=== PATIENT | male | born 1965 | race Caucasian/White ===

== ENCOUNTER 2018-02-10 05:35 | Day surgery (SDC) | payer BC ==
[~2018-02-10] VITALS: Ht 182.9 cm; Wt 122.5 kg
--- NOTE | ~2018-02-10 | EKG ---
[address] [address] ELECTROCARDIOGRAM REPORT Name: TAVARES,NAKITA Laurel Room #: 150-[address] [place] [address]#: [id number] Admission: 02/10/18 Attend Phys: Nakita Bowie MD Discharge: Date of : 65 Report #: [id number] THIS REPORT FOR: //name// [facility] Test Date: 2018-02-10 Test Time: 07:04:50 Pat Name: NAKITA TAVARES Department: Room: 150 1 Gender: M Data Warehouse Specialist: CHELE : 1965 Requested By: Nakita Bowie Order Number: [id number] MD: Glenn Dawkins Measurements Intervals [place] Rate: 76 P: 72 NE: 160 QRS: 39 QRSD: 103 T: 24 QT: 380 QTc: 428 Interpretive Statements Sinus rhythm Abnormal R-wave progression, early transition No previous ECG available for comparison Electronically Signed On 02-10-2018 7:59:41 CDT by Glenn Dawkins [email or web address] <ELECTRONICALLY SIGNED> By: Glenn Dawkins MD, [facility] 02/10/18 0759 0704 3 Glenn Dawkins MD, FACC /EPI
--- NOTE | ~2018-02-10 | O ---
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 PROCEDURE: Left knee arthroscopy with partial medial meniscectomy and debridement of medial compartment chondromalacia. SURGEON: Nakita Bowie MD INDICATIONS: This 53-year-old obese gentleman has problems with chronic left knee pain. He underwent previous arthroscopic debridement about 8 years ago, which involve principally debridement of medial compartment and medial meniscus damage. Now, he is having more severe and progressive pain, principally along the medial joint line. This makes ambulation and prolonged standing difficult. MRI study suggests some further tearing of the medial meniscus as well as some generalized chondromalacia. Given these findings and progressive ongoing symptoms, we have elected to go ahead with arthroscopic evaluation and debridement. DESCRIPTION OF PROCEDURE: The patient was taken to the operating room where he was placed under general anesthesia. Prophylactic intravenous antibiotics were administered. The left knee and thigh were meticulously prepped and draped and a thigh tourniquet inflated to 300 mmHg. A lateral suprapatellar inflow cannula was placed and the knee was inflated with normal saline. The arthroscope and shaver were introduced through parapatellar tendon approaches. The various compartments were sequentially visualized and documented with arthroscopic photography. The medial compartment reveals rather severe posttraumatic chondromalacia in the medial compartment with areas of complete loss of cartilage on the medial tibial plateau. The area of exposed subchondral bone measures about 12 mm-14 mm in diameter and a somewhat irregular serpentine fashion in the mid weightbearing portion. There is less significant cartilage damage anterior and more lateral to this, in that compartment. There is much less severe cartilage damage on the medial femoral condyle, where there seems to be grade 2 to mild grade 3 irregular cartilage damage with fibrillation and some delamination. These areas [address] [address] OPERATIVE REPORT Name: NAKITA TAVARES Room #: 150-1 [facility].#: [id number] Admission: 02/10/18 Attend Phys: Nakita Bowie MD Discharge: Date of : 65 Report #: [id number] of irregular loose and cartilage were gently debrided, smoothing the margin to a more smooth even aspect. I did not feel the area of severe cartilage damage would be amenable to microfracture technique. No further debridement of the articular surfaces was performed. The medial meniscus did reveal some chronic tearing with mild vertical and horizontal cleavage tears in the mid medial and posterior medial corner of these areas were gently debrided with a shaver, smoothing the meniscus back to a more smooth and regular margin. This left the outer 1/2-2/3 of the meniscus intact and stable. No other significant problems in the medial compartment were identified. The lateral compartment reveals much better cartilage on both the lateral femoral condyle and the lateral tibial plateau and lateral meniscus appears to be intact and stable with only minor fraying along its inner margin which was debrided. There was some loose cartilage in the lateral compartment, which was evacuated. No other abnormalities here were identified. The intercondylar notch reveals normal cruciate ligaments. There is mild synovial hypertrophy and mild spurring along the margin of the notch, which was debrided mostly for visualization purposes. No other abnormalities here were identified. The patellofemoral articulation reveals moderate generalized chondromalacia on both the patella and the trochlear region. This was a grade 2 on the patella and grade 3 in the trochlear region where there was some delamination and fragmentation which required limited debridement. The majority of the cartilage surfaces were still intact and stable. The patella seemed to track nicely. The suprapatellar pouch revealed some loose cartilage debris, which was evacuated, but no other significant abnormal findings. In summary, the primary and most significant problem is rather severe cartilage loss in the medial compartment, principally on the medial tibial plateau. There is similar but less severe cartilage damage involving the medial meniscus. The rest of the knee is in fairly good shape. I would expect, he will have some ongoing symptoms as a result of these problems, but hopefully symptoms will be manageable with activity moderation and anti-inflammatories and occasional knee injection. If symptoms become more severe, then he would be a candidate to discuss medial compartment hemiarthroplasty. I would certainly suggest and hope that he could make progress in weight reduction fitness as this is certainly contributing to his ongoing symptoms. At this point, all excess fluid was evacuated from the knee and the knee was injected with 80 mg of Depo-Medrol and 30 mL of Marcaine with epinephrine. The puncture sites were closed with interrupted nylon suture. A sterile dressing [facility] [address] [place] [address] OPERATIVE REPORT Name: NAKITA TAVARES Room #: 150-1 [facility]#: [id number] Admission: 02/10/18 Attend Phys: Nakita Bowie MD Discharge: Date of : 65 Report #: [id number] was applied. The patient was awakened and returned to recovery room in good condition. By: 0824 0849 Nakita Bowie MD /nt
[~2018-02-10 05:35] MED LIST: COZAAR 25 MG TA25 M2 PO; FARXIGA10 MG PO; METFORMIN HCL500 MG PO; MOBIC15 MG PO; PRAVACHOL20 MG PO; SULINDAC 200MG200 M1 PO; TRESIBA FL100 UNIT/1 SUBQ; VICTOZA0.6 MG/0.1 SUBQ
[2018-02-10 07:49] VITALS: BP 137/84
[2018-02-10 09:26] VITALS: BP 137/84
== END 2018-02-10 10:05 | disposition home or self-care (01) ==
LOC: OR 05:35 → TBA 05:35 → OR 10:05
DX: M23.204 Derangement of unspecified medial meniscus due to old tear or injury, left knee (principal); M94.262 Chondromalacia, left knee; G89.29 Other chronic pain; I10 Essential (primary) hypertension; E11.9 Type 2 diabetes mellitus without complications; E78.00 Pure hypercholesterolemia, unspecified; J45.909 Unspecified asthma, uncomplicated; Z98.890 Other specified postprocedural states; Z79.899 Other long term (current) drug therapy
CPT/HCPCS: 50010; 50101; 50405; 51038; 54170; 56526; 62110; 62900; 70005

== ENCOUNTER 2019-01-05 19:02 | Inpatient (IN) | payer BC ==
[~2019-01-05] VITALS: Ht 182.9 cm; Wt 123.4 kg
--- NOTE | ~2019-01-05 | O ---
[facility] [place] [address] OPERATIVE REPORT Name: NAKITA TAVARES Room #: 349-I ADM IN .R.#: [id number] Admission: 01/05/19 ������������������ Attend Phys: Franklin Platt MD Discharge: ������������������ Date of : 65 Report #: [id number] THIS REPORT FOR: //name// CC: Nakita Platt DATE OF SERVICE: 01/08/2019 PREOPERATIVE DIAGNOSIS: Gallstone pancreatitis. POSTOPERATIVE DIAGNOSIS: Gallstone pancreatitis. OPERATION: Laparoscopic cholecystectomy with intraoperative cholangiogram. SURGEON: Gavino Chu M.D. ANESTHESIA: General. ESTIMATED BLOOD LOSS: Minimal. SPECIMEN: Gallbladder. DESCRIPTION OF PROCEDURE: After informed consent was obtained: The patient was brought to the operating room and placed supine. SCDs were placed and working. Preoperative antibiotics were administered, general anesthesia was induced. The abdomen was prepped and draped in the usual sterile fashion. A 5 mm incision was made above the umbilicus. A 5 mm trocar was placed under direct vision and pneumoperitoneum was established. Three right upper quadrant 5 mm ports were placed. Gallbladder was grasped and retracted cephalad. Infundibulum was grasped and retracted laterally. I dissected out the cystic duct and cystic artery. Cystic duct was clipped. A ductotomy was made. A cholangiogram catheter was inserted and a cholangiogram was performed. This demonstrated filling of the short cystic duct, common bile duct, bifurcation of the hepatics, easy flow into the duodenum without filling defects. This was normal. Cholangiogram catheter was removed. The cystic duct was clipped and ligated with a PDS Endoloop. The cystic artery was clipped and ligated. The gallbladder was then taken to the liver bed with electrocautery. It was placed into an Endopouch and removed. The incision at the right-sided extraction site was closed with a yhlzle-nz-tdyrj 0 Vicryl for the fascia. Incisions were closed with 4-0 Monocryl and sealed with Dermabond. COMPLICATIONS: None. [facility] [address] [place] [address] OPERATIVE REPORT Name: NAKITA TAVARES Room #: 349-I [facility] IN ..#: [id number] Admission: 01/05/19 ������������������ Attend Phys: Franklin Platt MD Discharge: ������������������ Date of : 65 Report #: [id number] DISPOSITION: The patient was taken to recovery in satisfactory condition. ��������������������������������������������� ���������������������������������������� By: ��������������������������������������������� 1500 0609 Misbah Chu MD /nt
[2019-01-05 19:09] VITALS: BP 139/79
[2019-01-05 19:47] LABS: ABSOLUTE NEUTROPHILS 4.8 thou/uL (1.4-8.2); BASOPHILS 0.8 % (0.0-2.0); EOSINOPHILS 1.8 % (0.0-3.0); HEMATOCRIT 44.7 % (42.0-52.0); HEMOGLOBIN 15.7 gm/dL (14.0-18.0); LYMPHOCYTES 12.4 % (24.0-44.0); MCH 31.9 pg (26.0-34.0); MCHC 35.1 g/dL (28.0-37.0); MONOCYTES 9.4 % (1.0-8.0); PLATELET COUNT 175 thou/uL (150-400); POLYS 75.6 % (36.0-66.0); RBC 4.91 mil/uL (4.50-6.00); RDW 14.1 % (10.5-14.5); WBC 6.4 thou/uL (4.0-11.0)
[2019-01-05 19:50] LABS: CREATININE 1.3 mg/dL (0.7-1.3); POTASSIUM 3.9 mmol/L (3.5-5.1)
[2019-01-05 19:58] LABS: TOTAL BILIRUBIN 4.2 mg/dL (<0.1-1.0); TOTAL PROTEIN 7.6 g/dL (6.4-8.2)
[2019-01-05 21:54] LABS: URINE BILIRUBIN 1+ (Negative); URINE BLOOD NEGATIVE (Negative); URINE CLARITY CLEAR; URINE COLOR YELLOW; URINE GLUCOSE-RANDOM* 3+ (Negative); URINE KETONES NEGATIVE (Negative); URINE LEUKOCYTES NEGATIVE (Negative); URINE NITRITE NEGATIVE (Negative); URINE PROTEIN (DIPSTICK) TRACE (Negative); URINE UROBILINOGEN 0.2 E.U./dl (0.2-1.0)
[2019-01-05 21:56] VITALS: BP 188/76
[2019-01-05 22:05] VITALS: BP 153/77
[2019-01-05 22:07] VITALS: BP 125/70
[2019-01-06 00:08] VITALS: BP 142/80
[2019-01-06 04:00] VITALS: BP 153/81
[2019-01-06 05:48] LABS: ALBUMIN 3.7 g/dL (3.4-5.0); CALCIUM 8.4 mg/dL (8.5-10.1); CREATININE 1.3 mg/dL (0.7-1.3); TOTAL BILIRUBIN 5.3 mg/dL (<0.1-1.0); TOTAL PROTEIN 6.5 g/dL (6.4-8.2)
--- NOTE | 2019-01-06 06:42 | NUR ---
ASSUMED CARE OF PT AT 1900. A&Ox4, COOPERATIVE. PT WAS DROWSY DURING ADMISSION TO UNIT BUT RESPONDED QUICKLY TO STAFF. DENIED PAIN UP ON UNIT, STATED MEDS GIVEN IN ER MADE HIS ABDOMINAL PAIN TOLERABLE. IV FLUIDS INFUSING ORDERED. LAST GLUCOSE LEVEL WAS 88. PT'S NPO STATUS W/ GLUCOSE CHECK ARE BEING CLOSELY MONITORED. C/O CHRONIC KNEE PAIN. ICE PACK GIVEN THIS AM. CURRENTLY RESTING, WAITING FOR SURGERY OR CONSULTS TO GIVE HIM UPDATES AND FOR WHEN HE CAN HAVE EAT AND WATER
[2019-01-06 07:02] VITALS: BP 173/89
--- NOTE | 2019-01-06 08:24 | EKG ---
[place] [address] [facility] [place] [address] ELECTROCARDIOGRAM REPORT Name: TAVARESNAKITA Epps Room #: 349-I ADM IN .R.#: [id number] ������������������ Admission: 01/05/19 ������������������ Attend Phys: Franklin Platt MD Discharge: ������������������ Date of : 65 Report #: [id number] ����������������������������������������������������������������� [id number] THIS REPORT FOR: //name// [facility] ED Test Date: 2019-01-05 Test Time: 20:00:06 Pat Name: NAKITA TAVARES Department: Room: 349 Gender: M Owner Manager: RAMONE : 1965 Requested By: Hitesh Gomez Order Number: [id number] MD: Glenn Dawkins Measurements Intervals [place] Rate: 70 P: 49 VA: 154 QRS: 21 QRSD: 107 T: 20 QT: 415 QTc: 448 Interpretive Statements Sinus rhythm Abnormal R-wave progression, early transition Compared to ECG 02/10/2018 07:04:50 No significant changes Electronically Signed On 01-06-2019 8:24:01 CDT by Glenn Dawkins [email or web address] ��������������������������������������������� <ELECTRONICALLY SIGNED> ���������������������������������������� By: Glenn Dawkins MD, [facility] ��������������������������������������������� 01/06/1924 99 99 Glenn Dawkins MD, FAC /EPI
[2019-01-06 11:11] VITALS: BP 135/78
[2019-01-06 15:45] VITALS: BP 143/74
--- NOTE | 2019-01-06 16:21 | NUR ---
ASSUMED PATIENT CARE AT 0700. A/O X4. DENIES PAIN, NO N/V. NPO ONLY ICE CHIPS. UP AD JAMSHID. SLOWLY TOWARDS POC GOALS,
--- NOTE | 2019-01-06 16:24 | NUR ---
ASSESSMENT: CM REVIEWED CHART AND MET WITH PATIENT AT THE BEDSIDE. PT IS ALERT AND ORIENTED X4. PT WAS ADMITTED WITH GALLSTONES/PANCREATITIS. PT REPORTS HE LIVES AT HOME ALONE IN A HOUSE. PT REPORTS NO STEPS ONCE INSIDE AND ONLY ONE STEP TO ENTER. PT REPORTS HE IS FULLY INDEPENDENT WITH ADLS AND AMBULATION. PT DENIES HAVING HH IN THE PAST. CM DISCUSSED ROLE. PT DOES NOT ANCITIPATE HAVING ANY NEEDS FROM CM AT DISCHARGE. CM WILL CONTIUE TO FOLLOW TO ASSIST NEEDED.
[2019-01-06 17:25] LABS: % SATURATION 19 % (20-39); IRON 47 ug/dL (65-175); TIBC 242 ug/dL (250-450)
--- NOTE | 2019-01-06 18:06 | NUR ---
Dr. Blandon rounded on patient this evening. Gave verbal order for clear liquid diet. Patient continues to deny pain and nausea at this time. Up ad melida in room, steady gait. Continue to monitor.
[2019-01-06 19:20] VITALS: BP 147/69
[2019-01-07 03:30] VITALS: BP 152/79
[2019-01-07 04:25] LABS: HEMATOCRIT 40.9 % (42.0-52.0); HEMOGLOBIN 13.9 gm/dL (14.0-18.0); MCH 31.2 pg (26.0-34.0); MCV 91.9 fL (80.0-100.0); RBC 4.45 mil/uL (4.50-6.00); RDW 14.3 % (10.5-14.5); WBC 5.8 thou/uL (4.0-11.0)
[2019-01-07 04:40] LABS: PROTIME 10.5 Seconds (9.3-11.4)
[2019-01-07 04:49] LABS: ALBUMIN 3.3 g/dL (3.4-5.0); CALCIUM 8.1 mg/dL (8.5-10.1); CREATININE 1.2 mg/dL (0.7-1.3); POTASSIUM 3.9 mmol/L (3.5-5.1); TOTAL BILIRUBIN 2.2 mg/dL (<0.1-1.0); TOTAL PROTEIN 6.5 g/dL (6.4-8.2)
--- NOTE | 2019-01-07 05:41 | NUR ---
SLEPT PART OF SHIFT. WORKING ON GOALS AND PLAN OF CARE FOR NOC. UP AD JAMSHID WITH STEADY GAIT. PROGRESSING TOWARDS POSSIBLE SURGERY WEDNESDAY. DENIES COMPLAINTS OF PAIN OR NAUSEA THIS SHIFT. TOLERATING CLEAR LIQUIDS. CONTINUE TO ASSESS.
[2019-01-07 07:13] VITALS: BP 110/78
[2019-01-07 15:37] VITALS: BP 152/90
--- NOTE | 2019-01-07 16:38 | NUR ---
Assumed care of patient at 0700. Vitals have been stable. Alert and oriented x4. Denies any pain or nausea this shift. Did report some diarrhea this morning, but no further reports since. Steady gait, up ad melida in room. Okay for regular diet for dinner then will be NPO after midnight for surgery tomorrow. Continued IVF and IV antibiotics. Progressing towards POC. Will continue to monitor.
[2019-01-07 19:10] VITALS: BP 178/88
[2019-01-07 21:00] VITALS: BP 160/75
[2019-01-08] VITALS (9 sets, daily range): BP systolic 147–186; BP diastolic 68–90
--- NOTE | 2019-01-08 05:42 | NUR ---
SLEPT PART OF SHIFT. IV WAKES PATIENT UP WHEN PEEPING. UP AD JAMSHID WITH STEADY GAIT. NOT WANTING TO SHOWER AT THIS TIME. PROGRESSING TOWARDS GOALS FOR SURGERY TODAY. NPO PAST MIDNIGHT. UNAWARE OF SURGERY TIME OF YET. WORKING ON GOALS AND PLAN OF CARE FOR NOC. DENIES COMPLAINTS OF NAUSEA OR PAIN IN ABDOMAN THIS SHIFT. STATES HAS TINGLING IN FEET. ENCOURAGED TO MOVE FEET AND STRETCH. ENCOURAGE TO CALL IF CONTINUES TO HAVE FEELINGS. CONTINUE TO ASSES CLOSELY.
--- NOTE | 2019-01-08 11:59 | NUR ---
Patient left floor for surgery at 1155.
--- NOTE | 2019-01-08 18:20 | NUR ---
Assumed care of patient at 0700. Vitals have been stable. Alert and orietned x4. Denies pain this morning. Ready for surgery; NPO since midnight. Spoke with Dr. Chu; plan for surgery at 1200. Patient had lap-porsche performed this afternoon. Returned to floor post-op. Complaints of abdominal pain; gave Dilaudid IV x1 with good pain relief. Also complaints of nausea; Zofran given x1 with good effect. Patient has since denied need for PRN pain or nausea meds. Patient with 5 lap sites to abdomen, sealed with Dermabond, C/D/I. Has eaten some ice chips and ate some pudding. Looking forward to eating more solid food, so advanced to regular diet per orders. Hopeful for discharge tomorrow. Slowly progressing towards POC. Will continue to monitor.
--- NOTE | 2019-01-09 04:36 | NUR ---
PT MAKING PROGRESS TOWARDS GOALS. HAS RATED ABD PAIN 4/10 AND TOLERABLE. DID C/O HEADACHE AND WAS GIVEN ONE LORTAB. ALSO C/O NAUSEA ONE TIME AND WAS GIVEN ZOFRAN. HEADACHE AND NAUSEA WERE BOTH RESOLVED. PT UP AD JAMSHID IN THE ROOM.
[2019-01-09 05:04] VITALS: BP 143/68
[2019-01-09 07:22] VITALS: BP 158/74
[2019-01-09 08:43] LABS: HEMATOCRIT 40.9 % (42.0-52.0); HEMOGLOBIN 13.9 gm/dL (14.0-18.0); MCH 31.3 pg (26.0-34.0); MCV 91.8 fL (80.0-100.0); RBC 4.45 mil/uL (4.50-6.00); RDW 14.3 % (10.5-14.5); WBC 7.1 thou/uL (4.0-11.0)
[2019-01-09 08:57] LABS: CALCIUM 8.4 mg/dL (8.5-10.1); CREATININE 1.2 mg/dL (0.7-1.3); MAGNESIUM 1.9 mg/dL (1.8-2.4); POTASSIUM 3.7 mmol/L (3.5-5.1)
[2019-01-09 12:05] LABS: CERULOPLASMIN 23.9 mg/dL (16.0-31.0)
[2019-01-09 16:06] VITALS: BP 147/81
--- NOTE | 2019-01-09 16:18 | NUR ---
SW reviewed chart and spoke with nursing and attending physician. Pt had dinesh morrell on 01/08 and is progressing towards goals for discharge. Discharge home is anticipated for tomorrow. [facility] is following to assist as needed with discharge planning.
--- NOTE | 2019-01-09 17:43 | NUR ---
ASSUMED PATIENT CARE AT 0700. A/O X4. TOLERATED ON REGULAR DIET. UP AD JAMSHID. NO N/V. VSS. PROGRESSING TOWARDS POC GOALS. TRANSFER TO [facility].
--- NOTE | 2019-01-09 17:59 | NUR ---
REPORT GIVEN BY NURSE JIMENEZ ON 3W. PATIENT TRANSFERRED TO THE UNIT TO ROOM #225 FROM 3W ROOM #349. PATIENT ORIENTED TO ROOM. HE WANTED TO TAKE A SHOWER AND IV WRAPPED. IV ANTIBIOTICS WILL BE STARTED AFTER SHOWER.
[2019-01-09 20:41] VITALS: BP 150/65
--- NOTE | 2019-01-10 05:16 | NUR ---
Assumed pt care at 1900. Pt A/OX4,POD #2 s/p lap porsche. Has 4 lap sites clean/intact with dermabond. C/o pain at 01/27,medicated per EMAR with relief reported.VSS.IVF infusing via LFA without any problems noted. Up ad melida. Denies N/V on assessment.Resting quietly with eyes closed at this time no distress noted.Will continue to monitor pt.Call light/personal items within reach.
[2019-01-10 06:52] LABS: CALCIUM 8.3 mg/dL (8.5-10.1); CREATININE 1.2 mg/dL (0.7-1.3); TOTAL BILIRUBIN 0.8 mg/dL (<0.1-1.0); TOTAL PROTEIN 6.6 g/dL (6.4-8.2)
[2019-01-10 07:45] VITALS: BP 182/82
[2019-01-10 10:06] LABS: HBsAG-EMPLOYEE EXPOSURE Negative (Negative); HCV AB-EMPLOYEE EXPOSURE 0.2 (0.0-0.9)
--- NOTE | 2019-01-10 12:47 | NUR ---
SW reviewed chart and spoke with nursing and attending physician. Pt was transferred to [facility] from [facility] and is progressing towards goals for discharge. Discharge home is anticipated for later today/tomorrow. No SW interventions identified at this time, but is available to assist should needs arise.
[2019-01-10] MEDS ORDERED: COLACE100 MG PO (13:06)
[2019-01-10] MEDS ORDERED: MIRALAX17 GM PO (13:06)
[2019-01-10] MEDS ORDERED: NORCO 5-325 TA1 EACH PO (13:07)
[2019-01-10 14:29] VITALS: BP 150/65
--- NOTE | 2019-01-10 15:13 | NUR ---
PATIENT CARE WAS ASSUMED AT 0715.PATIENT IS ALERT AND ORIENTED X4.PT HAS IV FLUIDS INFUSING.PATIENT'S PAIN IS A 3/10.PAIN MEDS WILL BE GIVEN IN THE AM WITH MORNING MEDS.FALL PRECAUTIONS ARE IN PLACE.CALL LIGHT,PHONE, AND PERSONAL BELONGING ARE WITHIN REACH.
--- NOTE | 2019-01-10 15:16 | NUR ---
PATIENT WAS DISCHARGED TO GO HOME WITH SELF CARE.PATIENT WAS GIVEN DISCHARGE PAPERS, WITH EDUCATION ON NEW MEDICATION.IV WAS TAKEN OUT,GAUZE WAS PLACED WITH TAPE.PT HAS ALL OF HIS BELONGINGS.PT WILL DRIVE SELF HOME.PT WAS TAKEN OUT IN W/C BY PUPPET ENGINEER.
--- NOTE | 2019-01-10 17:06 | PATH ---
[facility] [address] [place] [address] PATHOLOGY RPT PROCEDURE Name: NAKITA TAVARES Laurel Room #: 225-P [facility] IN M.R.#: [id number] ������������������ Admission: 01/05/19 ������������������ Date of : 65 Discharge: 01/10/19 Report #: [id number] Path Case #: [id number] [facility] Accession Number: [id number] . 01 Material submitted: . gallbladder - GALLBLADDER . 01 Clinical history: . Gallstone pancreatitis . 01 Frozen section diagnosis: . . /IZV . 02 Diagnosis: Gallbladder, cholecystectomy: - Acute cholecystitis along with hemorrhage as well as gangrenous necrosis. - Cholelithiasis. - Reactive incidental lymph node. (IUV:rn progressive care unit; 01/10/2019) MBR/01/10/2019 . 02 Electronically signed: . Latia Angel MD, Pathologist NPI- [id number] . 01 Gross description: . Received in formalin labeled "Nakita Tavares, gallbladder," is an intact gallbladder measuring 9.6 x 3.6 x 2.6 cm in greatest dimensions. The serosal surface is smooth to shaggy, pink-lin to hemorrhagic and partially adipose-covered in appearance. A possible lymph node is noted near the infundibulum, measuring 1.5 x 1.0 x 0.6 cm. Portions of the gallbladder palpate as indurated, including a light lin area on the hepatic surface; the hepatic bed is inked black. Opening the specimen reveals a granular, dark lin-brown mucosa measuring 0.1 cm in thickness, with a gallbladder wall thickness of up to 1.0 cm including attached adipose tissue. A lin possible nodule is noted in the adipose tissue layer, measuring 0.4 cm in diameter and extending to within 2.6 cm of the infundibulum. A possible dark brown polyp is noted on the mucosa, measuring 0.5 cm in maximum dimension and extending to within 2.8 cm of the infundibulum. 2 black, granular calculi are noted within the specimen, measuring 0.5 and 0.6 cm in maximum dimension. Government Documents Librarian sections of the infundibulum, body and fundus are submitted in cassette A1. Additional farm loan representative sections of the indurated areas, aforementioned nodule and possible polyp are submitted in cassette A2. The possible lymph node is quadrisected and submitted entirely in cassette A3. [address] [address] PATHOLOGY RPT PROCEDURE Name: NAKITA TAVARES Room #: 225-P [facility] IN M.R.#: [id number] ������������������ Admission: 01/05/19 ������������������ Date of : 65 Discharge: 01/10/19 Report #: [id number] Path Case #: [id number] (DAC; 01/09/2019) XDC/XDC . 02 Pathologist provided ICD-10: K80.00 . 02 CPT . 014332 Specimen Comment: A courtesy copy of this report has been sent to Specimen Comment: [phone]. Specimen Comment: Report sent to Performed at: [address] [facility], [place] [id number] MD Richard Driscoll MD Phone: [phone] Performed at: [address] [id number] MD Latia Angel MD Phone: [phone]
== END 2019-01-10 15:15 | disposition home or self-care (01) | DRG 417 ==
LOC: ER 19:02 → EROBS 21:17 → ER 21:17 → 3W 21:17 → EROBS 22:32 → 3W 22:32 → SICU 01-09 17:54
PROVIDERS: Emergency Medicine; Internal Medicine Gastroenterology; Nurse Practitioner; Nurse Practitioner Acute Care; Surgery; ADMIT Internal Medicine
PROC: BF141ZZ Fluoroscopy of Gallbladder, Bile Ducts and Pancreatic Ducts using Low Osmolar Contrast (ICD-10-PCS; principal; 2019-01-08)
PROC: 0FT44ZZ Resection of Gallbladder, Percutaneous Endoscopic Approach (ICD-10-PCS; principal; 2019-01-08)
DX: K80.10 Calculus of gallbladder with chronic cholecystitis without obstruction (principal); K85.10 Biliary acute pancreatitis without necrosis or infection; I10 Essential (primary) hypertension; E11.9 Type 2 diabetes mellitus without complications; E78.00 Pure hypercholesterolemia, unspecified; N13.5 Crossing vessel and stricture of ureter without hydronephrosis; J45.909 Unspecified asthma, uncomplicated; K76.0 Fatty (change of) liver, not elsewhere classified; N26.1 Atrophy of kidney (terminal); E66.9 Obesity, unspecified; Z68.36 Body mass index [BMI] 36.0-36.9, adult; Z79.4 Long term (current) use of insulin; Z79.899 Other long term (current) drug therapy
CPT/HCPCS: 10779; 10879; 15002; 50010; 50101; 50411; 50555; 50558; 51297; 51489; 51975; 52265; 52266; 53307; 54118; 55245; 55317; 56462; 56525; 56526; 62110; 62900; 70005

== ENCOUNTER 2020-04-08 14:43 | Inpatient (IN) | payer BC ==
[2020-04-08] VITALS (12 sets, daily range): BP systolic 99–149; BP diastolic 60–91
[~2020-04-08] VITALS: Ht 182.9 cm; Wt 119.7 kg
[~2020-04-08 14:43] MED LIST changes: +COLACE100 MG PO; +MIRALAX17 GM PO; +NORCO 5-325 TA1 EACH PO
[2020-04-08 15:17] LABS: ABSOLUTE NEUTROPHILS 6.8 thou/uL (1.4-8.2); BASOPHILS 0.7 % (0.0-2.0); EOSINOPHILS 3.7 % (0.0-3.0); HEMATOCRIT 47.3 % (42.0-52.0); HEMOGLOBIN 16.4 gm/dL (14.0-18.0); LYMPHOCYTES 17.3 % (24.0-44.0); MCH 30.9 pg (26.0-34.0); MCHC 34.6 g/dL (28.0-37.0); MCV 89.3 fL (80.0-100.0); MONOCYTES 9.7 % (1.0-8.0); PLATELET COUNT 245 thou/uL (150-400); POLYS 68.6 % (36.0-66.0); RBC 5.29 mil/uL (4.50-6.00); RDW 14.3 % (10.5-14.5); WBC 9.9 thou/uL (4.0-11.0)
[2020-04-08 15:19] LABS: CREATININE 1.4 mg/dL (0.7-1.3); POTASSIUM 4.4 mmol/L (3.5-5.1)
[2020-04-08 15:29] LABS: ALBUMIN 4.2 g/dL (3.4-5.0); TOTAL BILIRUBIN 0.6 mg/dL (0.2-1.0); TOTAL PROTEIN 8.4 g/dL (6.4-8.2)
[2020-04-08 15:39] LABS: TROPONIN-I 6.42 ng/mL (<0.06)
[2020-04-08 16:46] LABS: PROTIME 10.1 Seconds (9.3-11.4)
[2020-04-08 16:49] LABS: CHOLESTEROL 172 mg/dL (<200); HDL CHOLESTEROL 28 mg/dL (>40); LDL CHOLESTEROL 70 mg/dL (<100); TC:HDL 6.1 Ratio (Not establshd); TRIGLYCERIDE 370 mg/dL (<150); VLDL 74 mg/dL (<40)
[2020-04-08 17:48] LABS: TSH 1.063 uIU/mL (0.358-3.740)
--- NOTE | 2020-04-08 20:02 | NUR ---
ASSUMMED PT CARE AT APPROXIMATELY 1843. PT A&O X4. VITAL SIGNS STABLE. R GROIN C/D/I. NO HEMATOMA. PT COMFORTABLE. BED REST IN PLACE. PT DENIES HAVING FURTHER CONCERNS. CALLED DR. CANDELARIO FOR NEW ORDERS. NEW ORDERS ENTERED INTO COMPUTER. REPORT GIVEN TO DIETARY AIDE COOK RN. DIETARY AIDE COOK RN STATED UNDERSTANDING AND DENIED HAVING FURTHER CONCERNS.
[2020-04-09 02:38] VITALS: BP 148/91
--- NOTE | 2020-04-09 05:15 | NUR ---
ASSUMED CARE OF PATIENT AT 1900. PATIENT HAD TRANSFERRED FROM COMPUTER NETWORK SPECIALIST AT SHIFT CHANGE. PATIENT CONTINUED TO C/O LEFT SHOULDER PAIN AND NOT BEING ABLE TO BREATHE. LUNG SOUNDS CLEAR. BREATHING REGULAR. APPLIED 2L OXYGEN VIA NC PER PATIENT REQUEST FOR COMFORT. ADMINISTERED PRN NITRO AND MORPHINE ADMINISTERED. PATIENT DID REPORT SOME RELIEF. PATIENT ALSO REQUESTED ICE PACK FOR SHOULDER. PATIENT SR ON MONITOR THROUGH NOC. RIGHT GROIN INCISION SITE REMAINS C/D/I. WILL CONTINUE TO MONITOR.
[2020-04-09 06:08] LABS: ABSOLUTE NEUTROPHILS 7.1 thou/uL (1.4-8.2); BASOPHILS 1.2 % (0.0-2.0); EOSINOPHILS 1.7 % (0.0-3.0); HEMATOCRIT 44.4 % (42.0-52.0); HEMOGLOBIN 15.3 gm/dL (14.0-18.0); LYMPHOCYTES 14.5 % (24.0-44.0); MCH 31.2 pg (26.0-34.0); MCHC 34.4 g/dL (28.0-37.0); MCV 90.8 fL (80.0-100.0); MONOCYTES 11.9 % (1.0-8.0); PLATELET COUNT 237 thou/uL (150-400); POLYS 70.7 % (36.0-66.0); RBC 4.89 mil/uL (4.50-6.00); RDW 14.4 % (10.5-14.5); WBC 10.1 thou/uL (4.0-11.0)
[2020-04-09 06:29] LABS: CALCIUM 8.3 mg/dL (8.5-10.1); CREATININE 1.5 mg/dL (0.7-1.3); MAGNESIUM 2.3 mg/dL (1.8-2.4); POTASSIUM 4.2 mmol/L (3.5-5.1)
[2020-04-09 06:41] LABS: TROPONIN-I 7.03 ng/mL (<0.06)
[2020-04-09 07:08] LABS: GLYCOHEMOGLOBIN (HGB A1C) 12.7 % (4.8-5.6)
[2020-04-09 07:25] VITALS: BP 129/79
--- NOTE | 2020-04-09 08:45 | EKG ---
[facility] [place] [address] ELECTROCARDIOGRAM REPORT Name: NAKITA TAVARES Room #: 201-P ADM IN M.R.#: [id number] Admission: 04/08/20 Attend Phys: Chapincito Kelley MD Discharge: Date of : 65 Report #: [id number] THIS REPORT FOR: cc: Nakita Killian David J. DO Lundgren,Glenn Randhawa MD [facility] ~ THIS REPORT FOR: //name// [facility] ED Test Date: 2020-04-08 Test Time: 14:42:42 Pat Name: NAKITA TAVARES Department: Room: 201 Gender: M Varnish Remover: TWYLA : 1965 Requested By: Jose Davidson Order Number: [id number] MD: Glenn Dawkins Measurements Intervals [place] Rate: 97 P: 75 TN: 147 QRS: 93 QRSD: 106 T: -64 QT: 360 QTc: 458 Interpretive Statements Sinus rhythm Borderline right axis deviation Borderline repolarization abnormality Compared to ECG 01/05/2019 20:00:06 ST and T wave abnormality is new Electronically Signed On 04-09-2020 8:44:53 CDT by Glenn Dawkins [email or web address] <ELECTRONICALLY SIGNED> By: Glenn Dawkins MD, [facility] 04/09/20 0844 1442 1442 Glenn Dawkins MD, [facility] /EPI
--- NOTE | 2020-04-09 08:53 | EKG ---
[facility] [place] [address] ELECTROCARDIOGRAM REPORT Name: NAKITA TAVARES Room #: 201-P ADM IN M.R.#: [id number] Admission: 04/08/20 Attend Phys: Chapincito Kelley MD Discharge: Date of : 65 Report #: [id number] THIS REPORT FOR: cc: Nakita Killian David J. DO Lundgren,Glenn Randhawa MD [facility] ~ THIS REPORT FOR: //name// [facility] Test Date: 2020-04-09 Test Time: 07:00:52 Pat Name: NAKITA TAVARES Department: Room: 201 P Gender: M Head Counselor: KELSI : 1965 Requested By: Jorge Bermeo Order Number: [id number] MD: Glenn Dawkins Measurements Intervals [place] Rate: 91 P: 86 [place]: 152 QRS: 94 QRSD: 100 T: 105 QT: 366 QTc: 451 Interpretive Statements Sinus rhythm Borderline right axis deviation Nonspecific T abnormalities, lateral leads Compared to ECG 04/08/2020 14:42:42 ST segment abnormalities less prominent Electronically Signed On 04-09-2020 8:52:59 CDT by Glenn Dawkins [email or web address] <ELECTRONICALLY SIGNED> By: Glenn Dawkins MD, [facility] 04/09/20 0852 9 9 Glenn Dawkins MD, [facility] /EPI
--- NOTE | 2020-04-09 10:15 | 2DMMODE ---
[facility] [place] [address] 2 D/M-MODE ECHOCARDIOGRAM Name: TAVARESNAKITA Epps Room #: 201-P ADM IN M.R.#: [id number] Admission: 04/08/20 Attend Phys: Chapincito Kelley MD Discharge: Date of : 65 Report #: [id number] THIS REPORT FOR: cc: Nakita Killian David J. DO Lundgren, Craig H. MD [facility] ~ APPROVED REPORT Study performed: 04/09/2020 09:27:06 EXAM: Comprehensive 2D, Doppler, and color-flow Echocardiogram Patient Location: Bedside Room #: 201 Status: routine BSA: 2.38 HR: 94 bpm BP: 129/79 mmHg Rhythm: NSR Other Information Study Quality: Adequate Indications Diabetes Dyspnea CAD Chest Pain Hypertension/HDD 2D Dimensions RVDd: 36.96 mm IVSd: 14.28 (7-11mm) LVOT Diam: 24.20 (18-24mm) LVDd: 53.80 mm PWd: 15.26 (7-11mm) Ascending Ao: 30.29 (22-36mm) LVDs: 46.26 (25-40mm) Aortic Root: 34.08 mm Volumes Left Atrial Volume (Systole) Single Plane 4CH: 57.40 mL Single Plane 2CH: 48.77 mL LA ESV Index: 25.00 mL/m2 Aortic Valve AoV Peak Eliot.: 1.34 m/s [facility] [address] [place] [address] 2 D/M-MODE ECHOCARDIOGRAM Name: NAKITA TAVARES Room #: 201-P ADM IN M.R.#: [id number] Admission: 04/08/20 Attend Phys: Chapincito Kelley MD Discharge: Date of : 65 Report #: [id number] AO Peak Gr.: 7.15 mmHg LVOT Max P.56 mmHg LVOT Max V: 0.94 m/s MARIBEL Vmax: 3.24 cm2 Mitral Valve E/A Ratio: 1.1 MV Decel. Time: 172.90 ms MV E Max Eliot.: 0.74 m/s MV A Eliot.: 0.68 m/s MV PHT: 50.14 ms IVRT: 133.79 ms Pulmonary Valve PV Peak Eliot.: 1.24 m/s PV Peak Gr.: 6.13 mmHg Pulmonary Vein P Vein S: 0.52 m/s P Vein A: 0.17 m/s P Vein D: 0.38 m/s P Vein A Dur.: 78.4 msec P Vein S/D Ratio: 1.37 Left Ventricle The left ventricle is normal size. Mild concentric left ventricular hypertrophy. Left ventricular systolic function is mild-moderately decreased. LVEF is 45%. Inferolateral, inferior, and inferoseptal hypokinesis Mild diastolic dysfunction is present (impaired relaxation pattern). Right Ventricle The right ventricle is normal size. The right ventricular systolic function is normal. Atria The left atrium size is normal. The right atrium size is normal. Aortic Valve The aortic valve is normal in structure. No aortic regurgitation is present. There is no aortic valvular stenosis. Mitral Valve The mitral valve is normal in structure. Mild mitral regurgitation. No evidence of mitral valve stenosis. Tricuspid Valve The tricuspid valve is normal in structure. There is no tricuspid valve regurgitation noted. [facility] [address] [address] 2 D/M-MODE ECHOCARDIOGRAM Name: NAKITA TAVARES Room #: 201-P ADM IN M.R.#: [id number] Admission: 04/08/20 Attend Phys: Chapincito eKlley MD Discharge: Date of : 65 Report #: [id number] Pulmonic Valve The pulmonary valve is normal in structure. There is no pulmonic valvular regurgitation. Great Vessels The aortic root is normal in size. IVC is not well visualized. Pericardium There is no pericardial effusion. <Conclusion> Left ventricular systolic function is mild-moderately decreased. LVEF is 45%. Inferolateral, inferior, and inferoseptal hypokinesis Mild diastolic dysfunction The aortic valve is normal in structure. No aortic regurgitation or stenosis The mitral valve is normal in structure. Mild mitral regurgitation. Pulmonary artery pressure could not be reliably ascertained There is no pericardial effusion. <ELECTRONICALLY SIGNED> By: Glenn Dawkins MD, FACC 04/09/20 1015 1015 1015 Glenn Dawkins MD, [facility] /INF
[2020-04-09 11:05] VITALS: BP 134/86
[2020-04-09 15:55] VITALS: BP 145/85
--- NOTE | 2020-04-09 16:53 | NUR ---
PT CARE ASSUMED APPROX 0700. ASSESSMENTS CHARTED. PT DENIES PAIN AND SOA. VSS. UP WITH STEADY GAIT. BS ELEVATED. CHANGES MADE TO POC. RIGHT GROIN POST CATH SITE C/D/I. PT DENIES QUESTIONS OR CONCERNS REGARDING POC. NO DISTRESS NOTED.
[2020-04-09 19:21] VITALS: BP 154/89
--- NOTE | 2020-04-09 22:29 | CATHLAB ---
[facility] [place] [address] INVASIVE PROCEDURE REPORT Name: NAKITA TAVARES Room #: 201-P ADM IN M.R.#: [id number] Admission: 04/08/20 Attend Phys: Chapincito Kelley MD Discharge: Date of : 65 Report #: [id number] THIS REPORT FOR: cc: Nakita Killian David J. DO Mancuso, Gerald M. MD [facility] ~ APPROVED REPORT Study performed: 04/08/2020 16:31:44 Patient Details Patient Status: ED Room #: The patient is a 55 year-old male Event Personnel Jorge Bermeo Bicycle Rental Clerk, Beatriz Mora RN, Arielle Siddiqui RT(R)() Yash Olmstead Roberta Monitor Procedures Performed Art Access - R femoral artery* Left Heart Cath w/or w/o Coronaries [id number] [facility] w/wo Plasty Single CIRC 750317 [facility] Place w/wo Plasty Single RCA 951719 Hemostasis w/ Mynx 98176 Initial Mod Sed Same Phys/QHP Gr5y 641214 26758 Mod Sed Same Phys/QHP Ea 003733 Indication Chest pain Procedure Narrative The Right Groin^ was infiltrated with 1% Lidocaine subcutaneous anesthesia. A PINNACLE 6FR Sheath #[id number] sheath was inserted into the RFA 6F^. Coronary angiography was performed using coronary diagnostic catheters. The right coronary system was accessed and visualized with a JR4 catheter. The left coronary system was accessed and visualized with a JL4 catheter. The left ventricle was accessed and visualized with a STR PIG catheter. Left ventriculogram was performed in 30 degree projection. The patient tolerated the procedure well and there were no complications associated with the procedure. There was no hematoma. Intraoperative Conscious Sedation Sedation start time: 1712 Case end Time: 1829 Fentanyl 100 mcg Versed 1 mg [facility] [place] [address] INVASIVE PROCEDURE REPORT Name: NAKITA TAVARES Room #: 201-P ADM IN M.R.#: [id number] Admission: 04/08/20 Attend Phys: Chapincito Kelley MD Discharge: Date of : 65 Report #: [id number] Fluoro Time: 14.43 minutes Dose: DAP 66269.20 cGycm2 2820 mGy Contrast Type and Amount: Visipaque 180 ml Hemodynamics The aortic pressure is 145/77 mmHg with a mean of 106 mmHg. The left ventricular pressure is 178/8 mmHg with a mean of mmHg. The left ventricular end diastolic pressure is 18 mmHg. PCI Technique Lesion Percutaneous coronary intervention was performed on the proximal circumflex artery segment. A 6FR LAUNCHER EBU 3.0 #[id number] Guide Catheter was used to engage the CIRX ostium. A Luge Wire .014 x 182CM #[id number] Interventional Guidewire was used to cross the lesion. BALLOON DILATION A Balloon catheter Sprinter OTW 2.5 x 15 #[id number] was inserted and inflated up to 6.00atm for 20seconds. Additional Inflation: 8.00atm for 24seconds. Additional Inflation: 6.00atm for 9seconds. ADDL INFLATIONS: 8ATM FOR 23 SEC, 6 TIFFANIE FOR 23 SECS, 10 TIFFANIE FOR 45 SECS. STENT DEPLOYMENT A stent RESOLUTE NAVID OTW 2.5 X 18 #[id number] was inserted and inflated up to 16.00atm for 32seconds. PCI Technique Lesion 2 Percutaneous Coronary Intervention was performed on the proximal right coronary artery. A JR4 Guide Catheter was used to engage the RCA ostium. A Luge Wire .014 x 182CM #[id number] Interventional Guidewire was used to cross the lesion. Balloon Dilation A Balloon catheter Sprinter OTW 2.0 x 12 #[id number] was inserted and inflated up to 10.00atm for 18seconds. Additional Inflation: 12.00atm for 13seconds. Additional Inflation: 16.00atm for 19seconds. ADDL INFLATIONS: 18 TIFFANIE FOR 16 SEC, 18 TIFFANIE FOR 11 SEC., 18 TIFFANIE FOR 11 SECS., 18 TIFFANIE FOR 8 SEC. Stent Deployment A stent RESOLUTE NAVID OTW 3.0 X 34 #[id number] was inserted and inflated up to 14.00atm for 30seconds. Additional Inflation: 18.00atm for 31seconds. [facility] [address] [place] [address] INVASIVE PROCEDURE REPORT Name: TAVARESNAKITA Room #: 201-P ADM IN M.R.#: [id number] Admission: 04/08/20 Attend Phys: Chapincito Kelley MD Discharge: Date of : 65 Report #: [id number] Conclusion 1. Successful PTCA stent of a subtotaled proximal large OM branch with a 2.5 x 18 resolute navid stent. Postdilated 2.7 mm SHU grade III flow. #2 successful PTCA stent of a total proximal RCA. This appeared to be more of a chronic total in the OM branch probable the acute or non-STEMI infarct vessel. Was able to dilate this segment proximally and long segment of disease placed a 3 oh by 34 resolute navid stent postdilated 3.25 mm SHU grade III flow market improvement in the distal vasculature of the dominant right coronary artery #3 the left main has mild ostial disease of 20 to 30% giving rise to LAD and circumflex #4 the LAD proximal calcification mildly an eccentric disease in the proximal mid vessel of 60% involving moderate disease in the diagonal takeoff of also 60% better preserved distal vessel in the LAD to the apex and the diagonal. #5 the circumflex is otherwise nondominant vessel and the OM branch was dilated as stated above. #6 the dominant right was was totally occluded as noted above there was collateral filling of the PDA via the left system so some viability remained in the inferior wall. #7 normal left jugular size with significant inferior wall hypokinesis EF in the 40% range suspect some stunning from either of the non-STEMI related vessels and chronic occlusion. Recommendations and plan: Resolution of chest pain. Difficult to know the infarct vessel here suspect the OM branch with the RCA being more of a chronic occlusion but was able to restore normal flow in both vessels. I suspect there will be some improvement in inferior wall hypokinesis. Patient is hemodynamically stable and pain-free upon transfer to CCU to follow post stent protocol. Dual antiplatelet therapy has been initiated. <ELECTRONICALLY SIGNED> By: Jorge Bermeo MD, [facility] 04/09/202228 28 2229 Jorge Bermeo MD, FACC /INF
--- NOTE | 2020-04-10 04:43 | NUR ---
ASSUMED CARE OF PATIENT AT 1900. PATIENT HAD NO C/O PAIN THROUGH SHIFT. PATIENT DID STATE HE WAS HAVING A DIFFICULT TIME SLEEPING DUE TO HIS NEUROPATHY AND NOT HAVING HAD HIS LYRICA FOR THE LAST FEW DAYS. OFFERED TO GET AN ORDER BUT PATIENT DECLINED STATING HE WOULD BE OK UNTIL HE WENT HOME TODAY.
[2020-04-10 04:56] VITALS: BP 136/74
[2020-04-10] MEDS ORDERED: COZAAR100 MG PO (07:21)
[2020-04-10] MEDS ORDERED: METOPROLOL SUCC50 MG PO (07:21)
[2020-04-10] MEDS ORDERED: ASPIRIN325 PO (07:21)
[2020-04-10] MEDS ORDERED: CRESTOR20 MG PO (07:21)
[2020-04-10] MEDS ORDERED: EFFIENT10 MG PO (07:21)
[2020-04-10 07:40] VITALS: BP 152/76
[2020-04-10 12:00] VITALS: BP 143/83
[2020-04-10 12:50] VITALS: BP 152/76
--- NOTE | 2020-04-10 13:26 | NUR ---
PT CARE ASSUMED APPROX 0700. ASSESSMENT CHARTED. PT DENIES PAIN AND SOA. VSS. UP WITH STEADY GAIT. PT DISCHARGED AT THIS TIME. DISCHARGE EDUCATION DONE BETWEEN PT AND Geovanna. PAPERWORK AND EDUCATION REVIEWED WITH PT BY THIS NURSE. PT DENIES QUESTIONS OR CONCERNS REGARDING POST HOSPITAL CARES. IV OUT, TELE OFF. PT ESCORTED OUT APPROX 15 MIN AGO BY NURSING STAFF.
== END 2020-04-10 14:34 | disposition home or self-care (01) | DRG 247 ==
LOC: ER 14:43 → EROBS 16:22 → 2N 16:22 → TBACV 17:09 → 2N 19:03
PROVIDERS: Emergency Medicine; Nurse Practitioner; Nurse Practitioner Adult Health; ADMIT Internal Medicine; ATTEND Internal Medicine
PROC: 4A023N7 Measurement of Cardiac Sampling and Pressure, Left Heart, Percutaneous Approach (ICD-10-PCS; principal; 2020-04-08)
PROC: B211YZZ Fluoroscopy of Multiple Coronary Arteries using Other Contrast (ICD-10-PCS; principal; 2020-04-08)
PROC: 027135Z Dilation of Coronary Artery, Two Arteries with Two Drug-eluting Intraluminal Devices, Percutaneous Approach (ICD-10-PCS; principal; 2020-04-08)
DX: I21.4 Non-ST elevation (NSTEMI) myocardial infarction (principal); N17.9 Acute kidney failure, unspecified; E87.1 Hypo-osmolality and hyponatremia; E66.9 Obesity, unspecified; J45.909 Unspecified asthma, uncomplicated; E78.00 Pure hypercholesterolemia, unspecified; E78.5 Hyperlipidemia, unspecified; I10 Essential (primary) hypertension; E11.9 Type 2 diabetes mellitus without complications; Z68.35 Body mass index [BMI] 35.0-35.9, adult; Z79.84 Long term (current) use of oral hypoglycemic drugs; Z82.49 Family history of ischemic heart disease and other diseases of the circulatory system; Z79.899 Other long term (current) drug therapy; Z79.4 Long term (current) use of insulin; Z79.891 Long term (current) use of opiate analgesic; G89.29 Other chronic pain
CPT/HCPCS: 10081

== ENCOUNTER → 2020-04-17 | Outpatient (CLI) | payer BC ==
[~2020-04-17] MED LIST changes: +ASPIRIN325 PO; +COZAAR100 MG PO; +CRESTOR20 MG PO; +EFFIENT10 MG PO; +METOPROLOL SUCC50 MG PO
== END ==
LOC: SJCVCIMAG 14:05
PROVIDERS: ATTEND Internal Medicine Cardiovascular Disease
DX: I51.7 Cardiomegaly (principal); I25.10 Atherosclerotic heart disease of native coronary artery without angina pectoris; I25.5 Ischemic cardiomyopathy; I25.2 Old myocardial infarction

== ENCOUNTER 2020-05-21 16:52 | Inpatient (IN) | payer BC ==
[~2020-05-21] VITALS: Ht 182.9 cm; Wt 118.4 kg
[2020-05-21 16:55] VITALS: BP 130/91
[2020-05-21 17:57] LABS: ABSOLUTE NEUTROPHILS 3.3 thou/uL (1.4-8.2); BASOPHILS 0.5 % (0.0-2.0); EOSINOPHILS 0.5 % (0.0-3.0); HEMATOCRIT 38.5 % (42.0-52.0); HEMOGLOBIN 13.2 gm/dL (14.0-18.0); LYMPHOCYTES 12.4 % (24.0-44.0); MCH 30.6 pg (26.0-34.0); MCHC 34.4 g/dL (28.0-37.0); MCV 88.8 fL (80.0-100.0); MONOCYTES 11.8 % (1.0-8.0); PLATELET COUNT 210 thou/uL (150-400); POLYS 74.8 % (36.0-66.0); RBC 4.33 mil/uL (4.50-6.00); RDW 13.9 % (10.5-14.5); WBC 4.4 thou/uL (4.0-11.0)
[2020-05-21 18:01] LABS: ANION GAP 8 mmol/L (7-16); BUN 15 mg/dL (7-18); CALCIUM 7.5 mg/dL (8.5-10.1); CHLORIDE 98 mmol/L (98-107); CO2 25 mmol/L (21-32); CREATININE 1.5 mg/dL (0.7-1.3); GLUCOSE 185 mg/dL (74-106); POTASSIUM 4.3 mmol/L (3.5-5.1); SODIUM 131 mmol/L (136-145)
[2020-05-21 18:11] LABS: ALBUMIN 3.1 g/dL (3.4-5.0); SGOT 36 U/L (15-37); SGPT 36 U/L (30-65); TOTAL BILIRUBIN 0.7 mg/dL (0.2-1.0); TOTAL PROTEIN 7.2 g/dL (6.4-8.2); TROPONIN-I <0.06 ng/mL (<0.06)
[2020-05-21 18:33] LABS: URINE BILIRUBIN NEGATIVE (Negative); URINE BLOOD NEGATIVE (Negative); URINE CLARITY CLEAR; URINE COLOR YELLOW; URINE GLUCOSE-RANDOM* 3+ (Negative); URINE KETONES NEGATIVE (Negative); URINE LEUKOCYTES-REFLEX NEGATIVE (Negative); URINE NITRITE-REFLEX NEGATIVE (Negative); URINE PROTEIN (DIPSTICK) NEGATIVE (Negative); URINE UROBILINOGEN 0.2 E.U./dl (0.2-1.0)
[2020-05-21 18:58] VITALS: BP 143/74
[2020-05-21 19:57] VITALS: BP 139/64
[2020-05-21 21:35] VITALS: BP 121/62
[2020-05-22] VITALS (8 sets, daily range): BP systolic 127–156; BP diastolic 59–95
[2020-05-22 03:31] LABS: CALCIUM 7.3 mg/dL (8.5-10.1); CREATININE 1.5 mg/dL (0.7-1.3); MAGNESIUM 1.8 mg/dL (1.8-2.4); POTASSIUM 4.7 mmol/L (3.5-5.1)
--- NOTE | 2020-05-22 03:52 | NUR ---
pt arrived on the floor around 2029, pt is awake, alert and orientedx4, pt is on room air o2sats stable above 95%, sr on the monitor, denies chest pain , c/o being sob with exertion, medications given as ordered, admission assessment as charted, BS stable at 87, consents obtained for convalescent plasma, vital signs stable, no acute distress noted, will continue to monitor
[2020-05-22 03:56] LABS: HEMATOCRIT 38.4 % (42.0-52.0); HEMOGLOBIN 12.9 gm/dL (14.0-18.0); MCH 30.1 pg (26.0-34.0); MCHC 33.5 g/dL (28.0-37.0); MCV 89.8 fL (80.0-100.0); PLATELET COUNT 185 thou/uL (150-400); RBC 4.28 mil/uL (4.50-6.00); RDW 14.2 % (10.5-14.5)
--- NOTE | 2020-05-22 07:50 | EKG ---
[facility] [place] [address] ELECTROCARDIOGRAM REPORT Name: NAKITA TAVARES Room #: 356-P ADM IN M.R.#: [id number] Admission: 05/21/20 Attend Phys: Jennie Li MD Discharge: Date of : 65 Report #: [id number] THIS REPORT FOR: cc: Nakita Killian David J. DO Lundgren, Craig H. MD [facility] ~ THIS REPORT FOR: //name// [facility] ED Test Date: 2020-05-21 Test Time: 17:21:15 Pat Name: NAKITA TAVARES Department: Room: [facility] Gender: M Skidder: : 1965 Requested By: Garland rOtez Order Number: [id number] MD: Glenn Dawkins Measurements Intervals [place] Rate: 89 P: 60 AR: 146 QRS: 33 QRSD: 99 T: -29 QT: 395 QTc: 481 Interpretive Statements Sinus rhythm Cannot rule out inferior infarct, age indeterminate Nonspecific T wave abnormality Compared to ECG 04/09/2020 07:00:52 No significant change was found Electronically Signed On 05-22-2020 7:50:24 CDT by Glenn Dawkins [email or web address] <ELECTRONICALLY SIGNED> By: Glenn Dawkins MD, [facility] 05/22/20 0750 1721 1721 Glenn Dawkins MD, [facility] /EPI
--- NOTE | 2020-05-22 10:24 | NUR ---
PATIENT WAS ADMITTED ON 05/21/20 WITH COVID TEST PENDING. PATIENT IS POSITIVE OF TODAY. HE WILL BE RECEIVING PLASMA AND REMDESIVIR PRIOR TO DISCHARGE. AT THIS TIME THE PATIENT IS NOT WITH IN 24/48 HOURS OF DISCHARGE AND IS ON ROOM AIR AMBULATING AT WILL. SPOKE WITH NURSING AND LET HER KNOW THAT I WOULD B CANCELLING THE ORDER AND WE CAN REORDER CLOSER TO DC.
--- NOTE | 2020-05-22 12:33 | NUR ---
CM MADE 2 ATTEMPTS TO CONTACT PT/NO ANSWER ON PT'S PHONE. CM ATTEMPTED TO CONTACT PT'S BROTHER, CHRISTEL - NO ANSWER.
[2020-05-22 13:48] LABS: FIBRINOGEN 489.1 mg/dL (210-360)
--- NOTE | 2020-05-22 13:51 | NUR ---
PT CARE ASSUMED AT 0700, PT ALERT AND ORIENTED X4, PT DENIES ANY CHEST PAIN, NAUSEA AND VOMITTING. PT IS ROOM AIR, NO SIGNS OF DISTRESS NOTED. PT IS UP AD JAMSHID TO THE BATHROOM. 0958 PRE VITAL SIGNS STABLE, CONVALESCENT PLASMA STARTED, FLORENCE CHAIREZ COSIGNED. 15MINS CHECK COMPLETED, VVS, NO REACTION NOTED. 1145 PLASMA TRANSFUSION COMPLETED, VITALS SIGNS COMPLETED, NO REACTION NOTED.
[2020-05-22 14:04] LABS: ALBUMIN 3.1 g/dL (3.4-5.0); CALCIUM 7.1 mg/dL (8.5-10.1); CREATININE 1.6 mg/dL (0.7-1.3); POTASSIUM 4.9 mmol/L (3.5-5.1); TOTAL BILIRUBIN 0.4 mg/dL (0.2-1.0); TOTAL PROTEIN 6.3 g/dL (6.4-8.2)
[2020-05-23 04:54] VITALS: BP 135/66
[2020-05-23 07:50] VITALS: BP 129/63
[2020-05-23 11:31] LABS: CHOLESTEROL 92 mg/dL (<200); HDL CHOLESTEROL 19 mg/dL (>40); LDL CHOLESTEROL -4 mg/dL (<100); TC:HDL 4.8 Ratio (Not establshd); TRIGLYCERIDE 388 mg/dL (<150); VLDL 78 mg/dL (<40)
[2020-05-23 11:41] VITALS: BP 145/73
--- NOTE | 2020-05-23 13:28 | NUR ---
SW reviewed chart and spoke with nursing and attending physician. Pt is in Enhanced Isolation due to COVID-19. Pt is afebrile and not requiring O2. Pt is on IV abx and IV steroids. Pt has convelescent plasma on 05/22 and is on course of Remdesivir. Plan is for pt to return home when medically stable. MAGGY is following to assist as needed with discharge planning.
--- NOTE | 2020-05-23 13:31 | NUR ---
PT CARE ASSUMED 0700, PT ALERT AND ORIENTED X4, PT DENIES CHEST PAIN, NAUSEA AND VOMITTING. PT IS ON ROOM AIR, NO SIGNS OF DISTRESS. PT IS UP AD JAMSHID. 1140 PT BLOOD SUGAR WAS 501, DR. COOPER PAGED AND GAVE TELEPHONE ORDER FOR A ONETIME ORDER OF 20 UNIT OF HUMALOG, IN ADDITION TO SLIDING SCALE. PT EDUCATED ON HIS DIET, WILL CONTINUE TO REINFORCE IT. PT TOOK A SHOWER, BED CHANGE. DENIES ANY NEEDS AT THE MOMENT. WILL CONTINUE TO MONITOR.
--- NOTE | 2020-05-23 15:46 | HC ---
[facility] [place] [address] CONSULTATION Name: NAKITA TAVARES Room #: 356-P ADM IN M.R.#: [id number] Admission: 05/21/20 Attend Phys: Jennie Li MD Discharge: Date of : 65 Report #: [id number] THIS REPORT FOR: cc: Nakita Killian David J. DO Al-Mubaslat, Ahmad MD ~ CC: Jennie Killian DO DATE OF SERVICE: 05/23/2020 ENDOCRINE CONSULTATION NOTE CONSULTING PHYSICIAN: Dr. Li. REASON FOR CONSULTATION: Type 2 diabetes mellitus, uncontrolled hyperglycemia. HISTORY OF PRESENT ILLNESS: This is a 55-year-old male patient whose medical background is significant for multiple medical issues including type 2 diabetes mellitus, hyperlipidemia, and coronary artery disease. The patient was admitted on the with complaints of progressive shortness of breath, sore throat, myalgia, arthralgia and generalized weakness that evolved over the 3 days preceding his presentation. The patient was admitted for further care and monitoring. It is worth noting that the patient had a recent non-STEMI in March 2020 prompting cardiac catheterization and a stent placement in his proximal circumflex, OM and RCA with his ejection fraction showing a diminished ejection fraction of 35-40% of that time. On presentation, the patient was found to be COVID-19 positive and was admitted after his chest x-ray demonstrated bilateral pneumonitis as well as acute renal insufficiency. The patient's type 2 diabetes history dates back to many years ago. His most recent antidiabetic regimen included Victoza 1.8 mg daily, Farxiga 10 mg daily, metformin 1000 mg b.i.d., as well as Tresiba insulin 48 units daily. As of recently, the patient has been dealing with consistently elevated blood glucose values running in the 200-300 range for the most part without issues of hypoglycemia. The patient's background is noted for CAD, as well as left sided sciatic requiring multiple epidural injections. However, he is not known to have retinopathy or diabetic peripheral neuropathy. He is known to have hyperlipidemia and is maintained on pravastatin. He is also hypertensive. REVIEW OF SYSTEMS: [facility] [address] [place] [address] CONSULTATION Name: NAKITA TAVARES Room #: 356-P [facility] IN M.R.#: [id number] Admission: 05/21/20 Attend Phys: Jennie Li MD Discharge: Date of : 65 Report #: [id number] CONSTITUTIONAL: Fatigue, tiredness, intermittent fever. No weight changes. HEENT: Sore throat, no sinus pain or ear drainage. PULMONARY: Shortness of breath and intermittent cough, no hemoptysis. CARDIAC: No chest pain, syncope or presyncope. GASTROINTESTINAL: Noted for occasional nausea, vomiting and diarrhea with abdominal discomfort. NEUROLOGY: Baseline significant sciatic nerve issues requiring epidural injections in the past. No loss of consciousness or seizure activity. PSYCHIATRIC: No delusions or hallucinations. Otherwise, review of systems noncontributory other than those mentioned in HPI. PAST MEDICAL HISTORY: 1. Type 2 diabetes mellitus. 2. Hypertension. 3. Hyperlipidemia. 4. History of CAD with a recent CA and stent placement in March 2020. 5. Diminished ejection fraction of 35-40%. 6. Asthma. 7. Atrophic kidney. 8. Fatty liver changes. PAST SURGICAL HISTORY: Left knee arthroscopy, left meniscal repair, umbilical hernia repair, kidney stone removal and cholecystectomy. OUTPATIENT MEDICATIONS: Include Tresiba 48 units daily, Victoza 1.8 mg daily, Farxiga 10 mg daily, metformin 1000 mg b.i.d., sulindac 200 mg p.o. b.i.d., rosuvastatin 20 mg daily, aspirin 325 mg daily, losartan 100 mg daily, metoprolol 50 mg daily, Effient 10 mg daily. ALLERGIES: No known drug allergies. FAMILY HISTORY: Noncontributory. SOCIAL HISTORY: The patient denies use of tobacco, alcohol or illicit drugs. PHYSICAL EXAMINATION: GENERAL: Pleasant male patient who is not in apparent pain or distress. VITAL SIGNS: Blood pressure is 130/57 mmHg, heart rate is 79 beats per minute, respirations 17 per minute, temperature 37.2 degrees Celsius. CONSTITUTIONAL: He is sitting upright in bed, appears relatively comfortable, not in apparent distress. HEENT: Anicteric sclerae. Intact extraocular motions. NECK: Supple, without JVD, carotid bruits or lymphadenopathy. I do not appreciate thyromegaly. CHEST: Noted for moderate air entry with bilateral rales. No wheeze or [address] [address] CONSULTATION Name: TAVARESNAKITA Room #: 356-P [facility] IN M.R.#: [id number] Admission: 05/21/20 Attend Phys: Jennie Li MD Discharge: Date of : 65 Report #: [id number] crackles. HEART: Regular rate and rhythm without murmurs or gallops. ABDOMEN: Soft, lax. No guarding. Active bowel sounds. EXTREMITIES: Lower extremity exam, trace ankle edema. No skin breaks. NEUROLOGIC: Awake, alert and oriented to time, place and person. The remainder of his examination is largely nonfocal. PSYCHIATRY: Pleasant, interactive. Normal mood and affect. Normal thought process. LABORATORY RESULTS: On presentation, blood glucose values have run between 87-428 mg/dL, but they were persistently over 250 mg/dL. Otherwise, sodium 134, potassium 4.9, chloride 99, CO2 of 22, anion gap 13, BUN 18, creatinine 1.6, AST 36, lipase 2758. Total bilirubin 0.4, calcium 7.1, magnesium 1.8, alkaline phosphatase 133, ALT 37, total protein 6.3, albumin 3.1, EGFR 45. Lactic acid 1.3. Troponin is negative. In March, his total cholesterol was 172, triglycerides 370, HDL 28, LDL 70. His white blood count is 4.0, hemoglobin 12.9, hematocrit 38.4, platelets 185. TSH 1.063. Hemoglobin A1c on 04/08/2020 was 12.7%. ASSESSMENT AND PLAN: 1. Type 2 diabetes mellitus. Uncontrolled as per his reported blood glucose values as well as hemoglobin A1c of 12.7% done recently. Unfortunately, with the suspected pancreatitis, the patient's candidacy for GLP-1 analogs including Victoza would be diminished. Also, in the setting of evolving renal insufficiency, he would at the very least to not be able to take a full therapeutic dose of metformin. This will add to his difficulties maintaining adequate control over his blood glucose values. Moreover, Farxiga would not be suitable for patient in the setting of acute illness. That said, the patient's main stay short term will be that of basal bolus insulin. It is noted that the patient is now maintained on methylprednisolone at 40 mg b.i.d., which is likely to worsen his insulin resistance short term. I will place the patient on a combination of Lantus insulin 30 units daily as well as Humalog insulin 10 units t.i.d. a.c. while supporting him with Humalog supplemental scale a.c. and at bedtime. Blood glucose monitoring will continue and further therapeutic adjustments will be made accordingly. 2. Hypertension. The patient's level of blood pressure control is adequate, continue the current regimen. 3. Hyperlipidemia. The patient is currently on atorvastatin 20 mg daily and tolerates it well. He was noted to have moderate hypertriglyceridemia in March 2020. In the event of severe elevation of his triglycerides, this could contribute directly to his suspected pancreatitis. I will check a lipid panel today to have a better feel for his current triglyceride level. If he proves to have severe hypertriglyceridemia then dedicated therapy will be needed, i.e., fenofibrate. 4. Pneumonitis. The patient proved to be COVID-19 positive. He is currently [address] [place] [address] CONSULTATION Name: NAKITA TAVARES Room #: 356-P ADM IN M.R.#: [id number] Admission: 05/21/20 Attend Phys: Jennie Li MD Discharge: Date of : 65 Report #: [id number] receiving therapy with remdesivir, steroids, and Zithromax. He appears to be clinically stable. 5. Pancreatitis. The patient has a fairly elevated lipase level. This is highly suspicious for pancreatitis. This would be quite relevant to the patient's future diabetes treatment plans as it rules out both GLP-1 analogs and DPP-4 inhibitors. I have reviewed the patient's clinical care notes, both inpatient and outpatient as well as recent and old laboratory data and other pertinent clinical information for over 35 minutes in addition to my encounter time with him. I certainly appreciate this consultation by Dr. Li. <ELECTRONICALLY SIGNED> By: Darnell Avila MD 05/23/20 1546 0953 1036 Darnell Avila MD /nt
[2020-05-23 16:55] VITALS: BP 137/54
[2020-05-23 19:38] VITALS: BP 136/65
[2020-05-24 05:00] VITALS: BP 145/78
--- NOTE | 2020-05-24 05:04 | NUR ---
FOLLOW POC WITH SECOND ROUND OF REMDESIVIR GIVEN. IVPB ANTIBIOTICS GIVEN ALSO. ACCU CHECK AT 2100 WAS OVER 400 AGAIN, GAVE PT 23 UN OF SHORT ACTING. VSS, NO FEVER. HEART RATES OVER NIGHT RUN IN 50'S, PT HISTORY SHOWS NO SLEEP APNEA. PT UP AD JAMSHID.
[2020-05-24 05:38] LABS: ABSOLUTE NEUTROPHILS 6.3 thou/uL (1.4-8.2); BASOPHILS 0.1 % (0.0-2.0); LYMPHOCYTES 8.9 % (24.0-44.0); MCH 30.4 pg (26.0-34.0); MCHC 34.1 g/dL (28.0-37.0); MCV 89.3 fL (80.0-100.0); MONOCYTES 7.7 % (1.0-8.0); PLATELET COUNT 239 thou/uL (150-400); POLYS 83.3 % (36.0-66.0); RBC 4.26 mil/uL (4.50-6.00); RDW 14.2 % (10.5-14.5); WBC 7.6 thou/uL (4.0-11.0)
[2020-05-24 06:09] LABS: ALBUMIN 2.9 g/dL (3.4-5.0); CALCIUM 8.1 mg/dL (8.5-10.1); CREATININE 1.1 mg/dL (0.7-1.3); POTASSIUM 4.9 mmol/L (3.5-5.1); TOTAL BILIRUBIN 0.3 mg/dL (0.2-1.0)
[2020-05-24 06:17] LABS: DIRECT BILIRUBIN 0.1 mg/dL (<0.1-0.2); TOTAL BILIRUBIN 0.3 mg/dL (0.2-1.0); TOTAL PROTEIN 6.4 g/dL (6.4-8.2)
[2020-05-24 07:28] VITALS: BP 134/74
[2020-05-24 11:19] VITALS: BP 168/80
[2020-05-24 12:34] VITALS: BP 142/78
--- NOTE | 2020-05-24 14:24 | NUR ---
MAGGY reviewed chart and spoke with nursing and attending physician. Pt remains in Enhanced Isolation due to COVID-19. Pt is afebrile and not requiring O2. Pt is on IV abx and IV steroids. Pt is completing course of Remdesivir. Weekend discharge is possible. MAGGY spoke with pt via phone to provide update and discuss discharge plan. Pt denies having any needs from case mgmt. Pt has his car at the hospital and will drive himself home. No discharge needs identified at this time. MAGGY is available to assist should needs arise.
[2020-05-24 15:11] VITALS: BP 146/66
--- NOTE | 2020-05-24 16:14 | NUR ---
RN HAS ASSUMED PT'S CARE AT 0700AM, PT IS A&OX3, PT IS CONTINUING ISOLATION FOR POSITIVE COVID, PT GETS UP TO BATH ROOM BY HIMSELF , RN HAS CALLED DR TO REPORT LOW HR AND HIGH BP, NEW ORDER RECEIVED, PT DENIES PAIN AND SOB AT THIS TIME.
[2020-05-24 19:39] VITALS: BP 150/71
[2020-05-25] VITALS (7 sets, daily range): BP systolic 134–162; BP diastolic 66–78
--- NOTE | 2020-05-25 00:52 | NUR ---
PT IS ALERT AND ORIENTED X4. VSS AFEBRILE. SB-SR ON MONITOR. C/O PAIN TO LES. MEDICATED WITH GABAPENTIN AND TYLENOL FOR PAIN. NO S/S DISTRESS. IV ABX INFUSING. PT AMBULATES TO BR WITH STEADY GAIT.
[2020-05-25 05:56] LABS: ALBUMIN 2.8 g/dL (3.4-5.0); CALCIUM 7.8 mg/dL (8.5-10.1); CREATININE 1.2 mg/dL (0.7-1.3); DIRECT BILIRUBIN 0.1 mg/dL (<0.1-0.2); POTASSIUM 4.2 mmol/L (3.5-5.1); TOTAL BILIRUBIN 0.3 mg/dL (0.2-1.0); TOTAL PROTEIN 6.7 g/dL (6.4-8.2)
--- NOTE | 2020-05-25 18:43 | NUR ---
RN HAS ASSUMED PT'S CARE AT 0700AM, PT IS A*OX3, PT 'S VS ARE STABLE, PT GETS UP TO BATH ROOM , PT DENIES PAIN AND SOB. PT IS CONTINUING ISOLATION FOR POSITIVE COVID.
[2020-05-26 03:48] VITALS: BP 147/85
--- NOTE | 2020-05-26 05:53 | NUR ---
Slept some. Tolerating room air well with no respiratory distress. Afebrile, cont. on enhanced precaution. Up ad melida in room with steady gait. Last dose of Remdesivir given last night. Pt. hoping he'll go home today.
[2020-05-26 07:33] VITALS: BP 151/92
[2020-05-26 11:09] VITALS: BP 126/77
[2020-05-26] MEDS ORDERED: NEURONTIN 300M300 M2 PO (12:21)
[2020-05-26] MEDS ORDERED: HUMALOG100 UNIT/1 SUBQ ×2 (12:21)
[2020-05-26] MEDS ORDERED: PROTONIX 20 MG20 M1 PO (12:21)
[2020-05-26] MEDS ORDERED: VENTOLIN HFA INH8 GM INH (12:21)
[2020-05-26] MEDS ORDERED: NYSTATIN-TRIAMC15 GM TOP (12:21)
[2020-05-26] MEDS ORDERED: MELATONIN5 M1 PO (12:21)
[2020-05-26] MEDS ORDERED: LANTUS SUBQ (12:21)
[2020-05-26 12:53] VITALS: BP 126/77
--- NOTE | 2020-05-26 13:19 | NUR ---
RN HAS ASSUMED PT'S CARE AT 0700AM, PT IS A&OX3, PT IS ON ROOM AIR , PT'S VS ARE STABLE , PT HAS FINISHED IV REMDESIVIR DOSE FOR POSITIVE COVID, PT DOSE NOT HAVE SOB AND FEVER, RN HAS RECEIVED DR ORDER TO DC PT TO HOME IF OK WITH ID , RN HAS CALLED DR BORRERO , WE HENRY FOR TO CALL BACK.
--- NOTE | 2020-05-26 16:35 | NUR ---
RN HAS RECEIVED ORDER TO DC PT TO HOME, RN HAS GIVING DC TEACHING , PT UNDSTANDERED WELL, PT WAS GOING HOME ABOUT 1420PM.
== END 2020-05-26 14:20 | disposition home or self-care (01) | DRG 177 ==
LOC: ER 16:52 → EROBS 19:22 → 3W 19:22
PROVIDERS: Emergency Medicine; Internal Medicine; Nurse Practitioner; Nurse Practitioner Family; Specialist; ADMIT Hospitalist; ATTEND Hospitalist
PROC: XW033E5 Introduction of Remdesivir Anti-infective into Peripheral Vein, Percutaneous Approach, New Technology Group 5 (ICD-10-PCS; principal; 2020-05-22)
DX: U07.1 COVID-19 (principal); K85.90 Acute pancreatitis without necrosis or infection, unspecified; J96.01 Acute respiratory failure with hypoxia; J12.89 Other viral pneumonia; N17.9 Acute kidney failure, unspecified; I42.9 Cardiomyopathy, unspecified; I50.22 Chronic systolic (congestive) heart failure; I13.0 Hypertensive heart and chronic kidney disease with heart failure and stage 1 through stage 4 chronic kidney disease, or unspecified chronic kidney disease; E78.00 Pure hypercholesterolemia, unspecified; J45.909 Unspecified asthma, uncomplicated; E78.5 Hyperlipidemia, unspecified; I25.10 Atherosclerotic heart disease of native coronary artery without angina pectoris; G47.33 Obstructive sleep apnea (adult) (pediatric); E11.22 Type 2 diabetes mellitus with diabetic chronic kidney disease; N18.2 Chronic kidney disease, stage 2 (mild); E11.65 Type 2 diabetes mellitus with hyperglycemia; E66.9 Obesity, unspecified; E11.40 Type 2 diabetes mellitus with diabetic neuropathy, unspecified; Z90.49 Acquired absence of other specified parts of digestive tract; Z87.442 Personal history of urinary calculi; Z68.36 Body mass index [BMI] 36.0-36.9, adult; Z95.5 Presence of coronary angioplasty implant and graft; Z79.899 Other long term (current) drug therapy
CPT/HCPCS: 10879

== ENCOUNTER → 2021-02-10 | Outpatient (CLI) | payer BC ==
[~2021-02-10] MED LIST changes: +ASPIRIN EC325 M1 PO; +DULOXETINE HCL60 MG PO; +HUMALOG100 UNIT/1 SUBQ; +LANTUS SUBQ; +LIDOCAINE1 EACH; +MELATONIN5 M1 PO; +METAXALONE800 MG PO; +METFORMIN HCL1000 MG PO; +NEURONTIN 300M300 M2 PO; +NEURONTIN300 MG PO; +NOVOLOG FL100 UNIT/M SUBQ; +NYSTATIN-TRIAMC15 GM TOP; +OZEMPIC0.25 MG/0. SUBQ; +PROAIR HFA8.5 GM INH; +PROTONIX 20 MG20 M1 PO; +ROSUVASTATIN CA20 MG PO; +TOPROL XL50 MG PO; +TRESIBA FL200 UNIT/1 SUBQ; +VENTOLIN HFA INH8 GM INH
--- NOTE | 2021-02-10 10:33 | EKG ---
[place] [address] [facility] [place] [address] ELECTROCARDIOGRAM REPORT Name: NAKITA TAVARES Room #: KARLA Lyn#: [id number] Admission: 02/10/21 Attend Phys: Nakita Bowie MD Discharge: Date of : 65 Report #: [id number] [facility] Test Date: 2021-02-10 Test Time: 09:00:13 Pat Name: NAKITA TAVARES Department: Room: Gender: M Inspector Plating: JOZEF : 1965 Requested By: Nakita Bowie Order Number: [id number] MD: Paramjit Omalley Measurements Intervals [place] Rate: 77 P: 61 IA: 159 QRS: 42 QRSD: 106 T: 83 QT: 432 QTc: 489 Interpretive Statements Sinus rhythm Abnormal R-wave progression, early transition Q wave lead III only Borderline repolarization abnormality Borderline prolonged QT interval Compared to ECG 05/21/2020 17:21:15 T-wave abnormality no longer present Electronically Signed On 02-10-2021 10:33:35 CDT by Paramjit Omalley [email or web address] <ELECTRONICALLY SIGNED> By: Paramjit Omalley MD, [facility] 02/10/21 1033 09 09 Paramjit Omalley MD, [facility] /EPI
== END ==
LOC: PAC 02-05 08:50
PROVIDERS: Student in an Organized Health Care Education/Training Program; ATTEND Orthopaedic Surgery
DX: Z01.812 Encounter for preprocedural laboratory examination (principal); Z20.822 Contact with and (suspected) exposure to COVID-19

== ENCOUNTER 2021-02-13 06:54 | Observation (INO) | payer BC ==
[~2021-02-13] VITALS: Ht 182.9 cm; Wt 122.5 kg
[2021-02-13 08:31] VITALS: BP 170/76
[2021-02-13 13:30] VITALS: BP 135/78
[2021-02-13 14:00] VITALS: BP 142/81
[2021-02-13 18:00] VITALS: BP 144/77
--- NOTE | 2021-02-13 19:29 | NUR ---
Pt transferred to unit from PACU. Pain controlled. Dressing c/d/i. Pt ambulating in the hallway. IVF infusing. Family at bedside. Call light within reach. Report given to yogesh HENRIQUEZ.
[2021-02-13 22:59] VITALS: BP 155/88
--- NOTE | 2021-02-14 06:42 | NUR ---
PT C/O PAIN TO HIS BACK,MANAGED WITH MED.DRSG C/D/I.PT UP ADLIB WTH A STEADY GAIT.BG ELEVATED AT HS,LONG ACTING AND SHORT ACTING INSULIN GIVEN PER ORDER.PT ABLE TO MAKE HIS NEED KNOWN.POSSIBLE DC TODAY.
[2021-02-14 07:30] VITALS: BP 151/89
[2021-02-14 10:05] LABS: ABSOLUTE NEUTROPHILS 11.3 thou/uL (1.4-8.2); BASOPHILS 0.4 % (0.0-2.0); EOSINOPHILS 0.4 % (0.0-3.0); HEMATOCRIT 38.6 % (42.0-52.0); HEMOGLOBIN 13.1 gm/dL (14.0-18.0); LYMPHOCYTES 5.8 % (24.0-44.0); MCH 30.1 pg (26.0-34.0); MCHC 33.8 g/dL (28.0-37.0); MONOCYTES 8.2 % (1.0-8.0); PLATELET COUNT 208 thou/uL (150-400); POLYS 85.2 % (36.0-66.0); RBC 4.34 mil/uL (4.50-6.00); RDW 14.2 % (10.5-14.5); WBC 13.3 thou/uL (4.0-11.0)
--- NOTE | 2021-02-14 10:15 | NUR ---
Assumed care of pt at 0700. Pt a&ox4. Pain controlled. Dressing c/d/i. Pt's pharmacy was called to obtain home medication list. Up ad melida. Call light within reach. Will continue to monitor.
--- NOTE | 2021-02-14 10:25 | NUR ---
ORDERS RECEIVED FOR PT EVAL AND TREAT. Pt S/P LUMBAR LAMINECTOMY AND DISKECTOMY D/T HNP AND FORAMINAL STENOSIS AT L L4-5. Pt LIVES ALONE IN HOME W/O STAIRS. NO ASSISTIVE DEVICE AT BASELINE. Pt REPORTED L SCIATIC PAIN PRIOR TO SURGERY BUT WHEN ASKED IF IT WAS RESOLVED NOW, HE STATED 'I CAN'T TELL.' Pt LYING IN R SIDELYING WATCHING TV. REPORTED HE HAS BEEN UP INDEPENDENTLY AND WALKING IN THE HALLWAYS. RN CONFIRMED. Pt POLITELY DECLINING PT NEEDS AT THIS TIME. ACUTE PT TO SIGN OFF.
[2021-02-14 10:34] LABS: CALCIUM 8.2 mg/dL (8.5-10.1); CREATININE 1.6 mg/dL (0.7-1.3); MAGNESIUM 2.2 mg/dL (1.8-2.4); POTASSIUM 4.9 mmol/L (3.5-5.1)
[2021-02-14 12:46] VITALS: BP 151/89
[2021-02-14] MEDS ORDERED: COZAAR100 MG PO (12:47)
--- NOTE | 2021-02-14 14:24 | NUR ---
ASSESSMENT: CM REVIEWED CHART AND MET WITH PATIENT. PT IS ALERT AND ORIENTED X4. PT IS S/P LAMINECTOMY. PT REPORTS LIVING IN A HOUSE ALONE WITH NO STEPS TO ENTER. PT REPORTS BEING FULLY INDEPENDENT WITH ADLS AND AMBULATION. PT HAS NO HX OF HH. PT IS UP WALKING IN ROOM. PT HAS NO NEEDS FROM CM PRIOR TO DISCHARGE. PT CLEARED TO DISCHARGE HOME TODAY.
--- NOTE | 2021-02-19 13:17 | D ---
[facility] [place] [address] DISCHARGE SUMMARY Name: NAKITA TAVARES LICO Room #: 438-P [facility] Michael Lyn#: [id number] Admission: 02/13/21 Attend Phys: Nakita Bowie MD Discharge: 02/14/21 Date of : 65 Report #: [id number] THIS REPORT FOR: cc: Nakita Killian David J. DO Clymer, David J. MD ~ DOC #: [id number] Nakita Bowie MD DATE OF SERVICE: 02/14/2021 FINAL DIAGNOSIS: Herniated lumbar disk with spinal stenosis. OPERATIVE PROCEDURES: Decompressive lumbar laminectomy, foraminotomy and diskectomy L4-L5, left. HISTORY OF PRESENT ILLNESS: This heavy 56-year-old gentleman has chronic low back problems associated with degenerative disk disease and degenerative arthritis. This has caused some foraminal narrowing and nerve root impingement with radiculopathy. He has tried conservative measures for quite some time without clear benefit. He has elected to go ahead with surgical decompression. HOSPITAL COURSE: The patient was admitted and taken to the operating room on 02/13/2021. He underwent a left L4-L5 decompressive laminectomy, diskectomy and foraminotomy. He tolerated this nicely. Postoperatively, he has been able to advance to a regular diet and oral pain medication. He has been able to ambulate with minimal assistance. The back dressing looks clean and dry. He denies any significant leg symptoms today and feels ready for discharge. I have instructed that he should continue careful limited activity and continue on his other chronic routine medications. He will continue an independent activity program at home and will follow up with me in 1 week. He will give me a call sooner if there are any problems or questions. DISCHARGE MEDICATIONS: Include Colace 100 mg b.i.d., Cozaar 100 mg daily, melatonin 5 mg daily, duloxetine 60 mg every day, insulin 48 units q.a.m., metaxalone 800 mg daily, insulin NovoLog 20 units t.i.d., metformin 1000 mg daily, aspirin 325 mg daily, gabapentin 300 mg twice daily, metoprolol 50 mg once daily, Effient 10 mg daily, rosuvastatin 20 mg daily, hydrocodone 5 or 10 mg 4 hours as needed for pain. Nakita Bowie MD [facility]/Peter [address] [address] DISCHARGE SUMMARY Name: NAKITA TAVARES Room #: 438-P [facility] Michael Lyn#: [id number] Admission: 02/13/21 Attend Phys: Nakita Bowie MD Discharge: 02/14/21 Date of : 65 Report #: [id number] <ELECTRONICALLY SIGNED> By: Nakita Bowie MD 02/19/21 1317 1142 1851 Nakita Bowie MD /nt
--- NOTE | 2021-02-19 13:17 | O ---
[facility] [place] [address] OPERATIVE REPORT Name: NAKITA TAVARES LICO Room #: 438-P [facility] Michael Lyn#: [id number] Admission: 02/13/21 Attend Phys: Nakita Bowie MD Discharge: 02/14/21 Date of : 65 Report #: [id number] THIS REPORT FOR: cc: Nakita Killian David J. DO Clymer, David J. MD ~ DOC #: [id number] Nakita Bowie MD DATE OF SERVICE: 02/13/2021 PREOPERATIVE DIAGNOSIS: Herniated lumbar disk and associated facet hypertrophy with foraminal spinal stenosis and radiculopathy, L4-L5, left. POSTOPERATIVE DIAGNOSIS: Herniated lumbar disk and associated facet hypertrophy with foraminal spinal stenosis and radiculopathy, L4-L5, left. PROCEDURE: Decompressive laminectomy and foraminotomy, L4-L5 left with diskectomy. SURGEON: Nakita Bowie MD INDICATIONS: This heavy 56-year-old gentleman complains of chronic progressive and persistent radiating left leg pain. He has had symptoms for several years. Previous MRI studies showed moderate sized disk bulge with associated facet hypertrophy causing some foraminal stenosis at L4-L5 on the left side. He has tried conservative management over the past couple of years, but symptoms have become more severe. His plans for previous surgery were delayed as he has had cardiac problems with a myocardial infarction about 1 year ago, which required treatment and ongoing stent placement with anticoagulation. Those problems have stabilized, but he remains quite heavy and deconditioned. He is having difficulty remaining functional and independent and working given his radiating left leg pain. Given this, we have elected to go ahead now with decompressive laminectomy and foraminotomy at L4-L5 toward the left side. DESCRIPTION OF PROCEDURE: The patient was taken to the operating room where he was placed under general anesthesia. Prophylactic intravenous antibiotics were administered. He was turned to the prone position. The low back was meticulously prepped and draped. C-arm was used to localize the appropriate level. A vertical skin incision was made just left of the midline overlying the L4-L5 level. The paraspinal muscles were retracted laterally and the dissection was carried down to the lamina. The ligamentum was excised and a small laminotomy in the inferior aspect of L4 and the superior aspect of L5 was created. This was extended both proximally and distally some extent to assure that the canal was widely opened. This was then extended laterally undercutting the medial one-third and one-half of the facet joint, which was quite hypertrophied with good deal of spurring. This allowed a good decompression of [address] [address] OPERATIVE REPORT Name: NAKITA TAVARES Room #: 438-P [place] Lyn#: [id number] Admission: 02/13/21 Attend Phys: Nakita Bowie MD Discharge: 02/14/21 Date of : 65 Report #: [id number] the lateral gutter. The L5 nerve root was visualized and traced out distally. A satisfactory foraminotomy was performed resolving any significant impingement on the nerve. This bony decompression and resection of the ligamentum seemed to result in excellent improvement in the canal and the lateral gutter and the neural foramina. The nerve root and dural sleeve were then retracted toward the midline to visualize the L4-L5 disk. The disk was found to be mildly prominent, but there was no significant extruded disk fragment. Nevertheless, I felt the disk was bulging enough that it probably did contribute also to nerve irritation. A small incision was made in the annulus and a moderate amount of degenerative disk debris was removed using small pituitary rongeurs. Intraoperative C-arm images were used to confirm that I was at the appropriate L4-L5 level. At this point, the canal and neural foramina seemed to be nicely decompressed. No further abnormalities were identified. The wound was copiously irrigated. Good hemostasis was established with the use of Gelfoam and thrombin and gentle pressure with cottonoids for several minutes. Once the wound was thoroughly dry, 40 mg of Depo-Medrol were left in the epidural space. A small sheet of Gelfoam soaked in thrombin was left over the laminotomy site. The muscles were returned to normal position and the fascia was closed with multiple #1 Vicryl sutures. The subcutaneous tissues and adipose tissues were closed with 0 Monocryl. The skin was closed with skin william. 20 mL of 0.5% Marcaine with epinephrine were also injected into the paraspinal muscles and subcutaneous tissues. The patient was then awakened and returned to the recovery room in good condition. Nakita Bowie MD DJ[facility]/STD <ELECTRONICALLY SIGNED> By: Nakita Bowie MD 02/19/21 1317 1114 1147 Nakita Bowie MD /nt
== END 2021-02-14 13:27 | disposition home or self-care (01) ==
LOC: OR → TBA 06:56 → OR 08:25 → TBA 10:21 → 4S 13:39 → OR 18:04 → 4S 02-14 13:27
PROVIDERS: Nurse Practitioner; ADMIT Orthopaedic Surgery; ATTEND Orthopaedic Surgery
DX: M48.061 Spinal stenosis, lumbar region without neurogenic claudication (principal); M54.16 Radiculopathy, lumbar region; N20.0 Calculus of kidney; Z98.890 Other specified postprocedural states
CPT/HCPCS: 50010; 50101; 50402; 50704; 50850; 51412; 56525; 62110; 62900; 65131; 70005